=== PATIENT | female | born 1935 | race Caucasian/White ===

== ENCOUNTER → 2017-05-31 | Outpatient (CLI) | payer OTHER ==
[~2017-05-31] MED LIST: ASCO100061 PO; CHOL100027 PO; EPP3/2 IM; FLAX1CAP11 PO; MULTTAB PO; OMEG10007 PO; OYST500T47 PO
[2017-05-31 10:44] LABS: HEMATOCRIT 38.1 % (37-47); MEAN CELL VOLUME 90.1 fL (80-100); MEAN CORPUSCULAR HEMOGLOBIN 30.3 pg (25-34); MEAN CORPUSCULAR HGB CONC 33.6 g/dl (32-36); MEAN PLATELET VOLUME 10.5 fL (7.4-10.4); PLATELET COUNT 233 K/uL (130-400); RED BLOOD COUNT 4.23 M/uL (4.2-5.4); WHITE BLOOD COUNT 3.68 K/uL (4.8-10.8)
[2017-05-31 10:58] LABS: ALT/SGPT 19 U/L (12-78); BLOOD UREA NITROGEN 17 mg/dl (7-18); BUN/CREATININE RATIO 25.4 (10-20); CALCIUM 8.7 mg/dl (8.5-10.1); CARBON DIOXIDE 30 mmol/L (21-32); CHLORIDE 108 mmol/L (98-107); CHOLESTEROL 225 mg/dl (0-200); CREATININE 0.66 mg/dl (0.60-1.20); GLUCOSE 80 mg/dl (70-99); POTASSIUM 4.1 mmol/L (3.5-5.1); SODIUM 142 mmol/L (136-145); TRIGLYCERIDES 101 mg/dl (0-150); VERY LOW DENSITY LIPOPROT CALC 20 mg/dl
[2017-05-31 11:08] LABS: ALKALINE PHOSPHATASE 64 U/L (45-117); AST/SGOT 17 U/L (15-37); CHOLESTEROL/HDL RATIO 3.7; HDL CHOLESTEROL 61 mg/dl; LDL CHOLESTEROL CALCULATED 144 mg/dl
[2017-05-31 11:59] LABS: BASO % 0.5 %; BASO ABS # 0.02 K/uL (0-0.2); COMPLETE YES; EOS % 2.4 %; LYMPH % 59.2 %; LYMPH ABS # 2.18 K/uL (1.2-3.4); MONO % 9.8 %; NEUT % 28.1 %
== END | disposition home or self-care (01) ==
LOC: C.LAB 07:36
PROVIDERS: ATTEND Physician Assistant
DX: D72.819 Decreased white blood cell count, unspecified (principal); E78.5 Hyperlipidemia, unspecified; E55.9 Vitamin D deficiency, unspecified

== ENCOUNTER → 2017-08-01 | Outpatient (CLI) | payer OTHER ==
[~2017-08-01] MED LIST changes: +ASPI81TA28 PO
--- NOTE | 2017-08-01 12:50 | MAMMOGRAPHY REPORT ---
BILATERAL DIGITAL SCREENING MAMMOGRAM TOMOSYNTHESIS WITH CAD: 08/01/2017 CLINICAL HISTORY: Routine screening. Patient has no complaints. TECHNIQUE: Breast tomosynthesis in addition to standard 2D mammography was performed. Current study was also evaluated with a Computer Aided Detection (CAD) system. COMPARISON: Comparison is made to exams dated: 07/31/2016 mammogram, 10/05/2015 stereotactic biopsy, mammogram, 08/15/2015 mammogram, 07/26/2015 mammogram, and 07/22/2014 mammogram - [facility]. BREAST COMPOSITION: The tissue of both breasts is heterogeneously dense, which may obscure small mas ses. FINDINGS: No suspicious masses, calcifications, or areas of architectural distortion are noted in ei ther breast. There has been no significant interval change compared to prior exams. There are stable postsurgical changes in the right upper outer quadrant from prior lumpectomy. A biopsy marker clip is again noted within the left upper outer quadrant. bilateral benign-appearing calcifications are no t significantly changed. 8 mm mass within the right medial breast is stable dating back to at least the 2009 exam, and considered benign given long-term stability. IMPRESSION: ACR BI-RADS CATEGORY 2: BENIGN There is no mammographic evidence of malignancy. A 1 year screening mammogram is recommended. The pa tient will receive written notification of the results. Approximately 10% of breast cancers are not detected with mammography. A negative mammographic report should not delay biopsy if a clinically suggestive mass is present. Belkis Coates M.D. /:08/01/2017 07:29:31 Design Maker: Arlette CLARKE(Mina)(M), [facility] letter sent: Normal 1/2 BI-RADS Code: ACR BI-RADS Category 2: Benign
== END | disposition home or self-care (01) ==
LOC: C.MAMM 07:10
PROVIDERS: ATTEND Internal Medicine
DX: Z12.31 Encounter for screening mammogram for malignant neoplasm of breast (principal)

== ENCOUNTER 2017-12-14 17:25 | Emergency (ER) | payer OTHER ==
[2017-12-14 17:38] VITALS: TEMP 36.7; Ht 165.1 cm
[2017-12-14] MEDS ORDERED: SODIUM CHLORIDE 0.9% 500ML 500 ML IV STA (17:49)
--- NOTE | 2017-12-14 17:55 | EMERGENCY ROOM VISIT NOTE ---
History Report prepared by Jake: Emil Collins Under the Supervision of: Dr. Benjamín Jean M.D. First contact with patient: 17:43 Chief Complaint: ABDOMINAL PAIN Stated Complaint: SICK, ABD PAIN Nursing Triage Summary: I was in town and attempting to get out of the car and I had really bad burning in my upper abdomen. no cardic history. denies shortness of breath or diaphoresis. History of Present Illness The patient is a 82 year old female who presents to the Emergency Room with complaints of worsening epigastric abdominal pain that began an hour ago after she stepped out of her car. Patient describes the pain as a "burning". She states that the symptoms came on all of a sudden. She states that the pain does not radiate to her chest. She adds that lying down relieves the symptoms. She adds that she got dizzy when she stepped out of the car as well. Patient states that she was working outside today. Patient has a family history on her mother' s side of gallbladder problems. Patient denies a history of GERD, pancreatitis, abdominal surgeries, heart/abdominal problems, or easy bleeding. Patient denies a history of an enlarged aorta. Patient denies any recent falls or injuries. She denies fevers, chills, or chest pain. Patient denies using any alcohol recently. Patient states that she has never smoked. She denies using medications on a daily basis. Source of History: patient Onset: 1 hour ago Position: abdomen (Epigastric) Quality: burning Timing: worsening Modifying Factors (Relieving): other (Lying down) Associated Symptoms: No fevers, No chills, No chest pain Note: Patient has dizziness. Review of Systems See HPI for pertinent positives & negatives. A total of 10 systems reviewed and were otherwise negative. Past Medical & Surgical Medical Problems: (1) Esophageal Reflux (2) Hyperlipidemia Nec/Nos (3) Hypothyroidism Nos (4) Pure Hypercholesterolem (5) Scoliosis Nec (6) Senile Osteoporosis (7) Trans Cereb Ischemia Nos Family History Cancer Social History Smoking Status: Never Smoker Marital Status: Housing Status: lives with family Occupation Status: retired Current/Historical Medications Scheduled Ascorbic Acid (Ascorbic Acid), 1,000 MG PO DAILY Aspirin (Aspirin Ec), 81 MG PO DAILY Cholecalciferol (Vitamin D 1000 Unit), 1,000 INTER.UNIT PO DAILY Epinephrine (Epipen), 0.3 MG IM UD Fish Oil ([place]-3), 1 CAP PO DAILY Flaxseed (Linseed) (Flax Seed Oil), 1 CAP PO DAILY Multivitamins/Minerals (Mvi With Minerals), 1 TAB PO DAILY Oyster Shell (Calcium), 500 MG PO DAILY Allergies Coded Allergies: Iodine (Verified Allergy, Unknown, SEE BELOW, 12/14/17) PT DENIES ANY ALLERGY TO ANY IODINE PREP SOLUTION, PT STATES SHE BECOMES VERY ILL WITH ANY SHELLFISH. (N/V). Shellfish (Verified Adverse Reaction, Severe, VOMITING, 12/14/17) Physical Exam Vital Signs Date Time Temp Pulse Resp B/P (MAP) Pulse Ox O2 Delivery O2 Flow Rate FiO2 12/14/17 20:15 63 19 152/77 99 12/14/17 19:31 67 21 154/70 95 Room Air 12/14/17 19:01 63 16 153/75 99 Room Air 12/14/17 18:40 82 20 120/68 97 Room Air 12/14/17 17:51 75 12/14/17 17:38 36.7 77 18 155/79 98 Room Air Physical Exam GENERAL: Patient is elderly appearing and in mild distress. EYES: No scleral icterus, unremarkable pupils. ENT: Mucous membranes moist, no nasal congestion. NECK: No masses appreciated, no meningismus, trachea is midline. RESPIRATORY: No dyspnea. Clear to auscultation and equal bilaterally. No wheeze , no rhonchi. CARDIOVASCULAR: Regular rate and rhythm. No murmurs, rubs, gallops appreciated. GASTROINTESTINAL: Abdomen soft, point tenderness of epigastrium with questionable enlarged aorta, no peritonitis. Bowel sounds positive. No masses appreciated. BACK: No midline tenderness, no CVA tenderness EXTREMITIES: Normal motion all extremities, no cyanosis, no edema. NEUROLOGIC: Alert and oriented, no acute motor or sensory deficits, no focal weakness, cranial nerves grossly intact. SKIN: No rash, no jaundice, no diaphoresis. Medical Decision & Procedures ER Provider Diagnostic Interpretation: Radiology results and stated below per my review and radiologist interpretation: ABDOMEN AND PELVIS CT WITHOUT CONTRAST CT DOSE: 287.65 mGy.cm HISTORY: onset epigastric pain TECHNIQUE: Multiaxial CT images of the abdomen and pelvis were performed without the use of intravenous and oral contrast according to the standard department stone protocol. A dose lowering technique was utilized adhering to the principles of ALARA. COMPARISON STUDY: None. FINDINGS: The lung bases are essentially clear. No pneumoperitoneum. No pneumatosis. Posterior fusion from L2 through S1 with pedicle screws and rods. No suspicious lytic or blastic osseous lesions. Metallic artifact from the lumbar spinal fusion hardware resulting in suboptimal evaluation of the upper abdominal structures. However, the unenhanced liver, gallbladder, spleen, adrenal glands, pancreas, and left kidney are unremarkable. No renal or ureteral calculi. No left-sided hydronephrosis. The right renal pelvis is likely due to an extrarenal pelvis. No retroperitoneal lymphadenopathy. The bladder, uterus, bilateral adnexa are unremarkable. Suboptimal evaluation for bowel pathology due to the lack of intravenous and oral contrast. However, there is no definite out wall thickening or obstruction. A few colonic diverticula. No definite bowel wall thickening or obstruction. Moderate well-formed stool within the colon. IMPRESSION: 1. No definite bowel wall thickening or obstruction. 2. Moderate well-formed stool seen within the colon. 3. Posterior fusion throughout the majority of the lumbar spine. 4. Mildly dilated right renal pelvis. This likely represents an extrarenal pelvis. No renal or ureteral stones. No definite hydronephrosis. Electronically signed by: Raji Jj M.D. 12/14/2017 7:23 PM Laboratory Results 12/14/17 17:00 Red Blood Count 4.39, Mean Corpuscular Volume 88.2, Mean Corpuscular Hemoglobin 29.8, Mean Corpuscular Hemoglobin Concent 33.9, Mean Platelet Volume 9.7, Neutrophils (%) (Auto) 25.8, Lymphocytes (%) (Auto) 63.4, Monocytes (%) (Auto) 8.6, Eosinophils (%) (Auto) 1.8, Basophils (%) (Auto) 0.2, Neutrophils # (Auto) 1.25, Lymphocytes # (Auto) 3.09, Monocytes # (Auto) 0.42, Eosinophils # (Auto) 0.09, Basophils # (Auto) 0.01 12/14/17 17:00 Test 12/14/17 17:00 White Blood Count 4.87 K/uL (4.8-10.8) Red Blood Count 4.39 M/uL (4.2-5.4) Hemoglobin 13.1 g/dL (12.0-16.0) Hematocrit 38.7 % (37-47) Mean Corpuscular Volume 88.2 fL (80-100) Mean Corpuscular Hemoglobin 29.8 pg (25-34) Mean Corpuscular Hemoglobin Concent 33.9 g/dl (32-36) Platelet Count 251 K/uL (130-400) Mean Platelet Volume 9.7 fL (7.4-10.4) Neutrophils (%) (Auto) 25.8 % Lymphocytes (%) (Auto) 63.4 % Monocytes (%) (Auto) 8.6 % Eosinophils (%) (Auto) 1.8 % Basophils (%) (Auto) 0.2 % Neutrophils # (Auto) 1.25 K/uL (1.4-6.5) Lymphocytes # (Auto) 3.09 K/uL (1.2-3.4) Monocytes # (Auto) 0.42 K/uL (0.11-0.59) Eosinophils # (Auto) 0.09 K/uL (0-0.5) Basophils # (Auto) 0.01 K/uL (0-0.2) RDW Standard Deviation 40.0 fL (36.4-46.3) RDW Coefficient of Variation 12.5 % (11.5-14.5) Immature Granulocyte % (Auto) 0.2 % Immature Granulocyte # (Auto) 0.01 K/uL (0.00-0.02) Anion Gap 6.0 mmol/L (3-11) Estimated GFR () 92.6 Estimated GFR (Non- 79.9 BUN/Creatinine Ratio 20.2 (10-20) Calcium Level 8.9 mg/dl (8.5-10.1) Total Bilirubin 0.3 mg/dl (0.2-1) Direct Bilirubin < 0.1 mg/dl (0-0.2) Aspartate Amino Transf (AST/SGOT) 20 U/L (15-37) Alanine Aminotransferase (ALT/SGPT) 23 U/L (12-78) Alkaline Phosphatase 77 U/L (45-117) Troponin I < 0.015 ng/ml (0-0.045) Total Protein 7.4 gm/dl (6.4-8.2) Albumin 3.8 gm/dl (3.4-5.0) Lipase 211 U/L (73-393) Laboratory results as reviewed by me. Medications Administered Medications (Trade) Dose Ordered Sig/Agusto Route Start Time Stop Time Status Last Admin Dose Admin Sodium Chloride 500 ml @ 999 mls/hr Q31M STAT IV 12/14/17 17:49 12/14/17 18:19 DC 12/14/17 18:27 999 MLS/HR Lidocaine HCl (Viscous Lidocaine 2% Soln) 20 ml STK-MED ONCE .ROUTE 12/14/17 19:19 12/14/17 19:20 DC 12/14/17 19:21 20 ML Al Hydroxide/Mg Hydroxide (Maalox Susp) 30 ml STK-MED ONCE .ROUTE 12/14/17 19:19 12/14/17 19:20 DC 12/14/17 19:22 30 ML ECG Per My Interpretation Indication: abdominal pain Rate (beats per minute): 68 Rhythm: sinus rhythm Findings: no acute ischemic change, prolonged QT (QTc = 438), no ectopy ED Course 1738: The patient was evaluated in room A9. A complete history and physical exam was performed. 1905: I reassessed the patient. She states that her pain continues to improve and that it is not bothering her. She states that she still has a light burning in her epigastrium. Patient is agreeable to trying a GI cocktail. Patient adds that she never had an allergic reaction to IV dye. She states that she had a low blood pressure during surgery with a farm loan inspector which they thought might be due to the the cleaning solution that was used. 2006: Reevaluated the patient. She states that she would like to go home. She admits that she has been previously told that she might have a bad gallbladder and will follow up with her PCP. Discussed results and discharge instructions. She verbalized understanding and agreement. The patient is ready for discharge. Medical Decision Differential: Cholecystitis, Gallbladder disfunction, Hepatic Disfunction, Gastritis/PUD, Pancreatitis, ACS, Aortic Pathology, amongst other pathologies entertained. 82 yr old with 6+ hours of epigastric pain starting around late morning/lunch. No history of this previously and mild TTP on exam which given this went ahead with CT. Ordered IV con but CT states that she is allergic thus switched to without rather than delay imaging. CT unremarkable. Discussed allergy with patient and she notes low BP and bradycardia after Derm procedure which was thought it might have been due to iodine. She does not think she has had IV contrast before though. Regardless. with normal aorta size, resolution of pain with GI cocktail and patient looking well without peritonitis, and with excellent pulses I do not feel that sending back for CT w con required at this time. Patient without evidence ACS. She is feeling well and wishes to go home which seems reasonable. No indication that repeat Trop/EKG indicated in this case. Patient discharged to home with instructions requiring RTED. Medication Reconcilliation Current Medication List: was personally reviewed by me Blood Pressure Screening Patient's blood pressure: Elevated blood pressure Blood pressure disposition: Referred to PCP Impression Primary Impression: Epigastric abdominal pain Scribe Attestation The scribe's documentation has been prepared under my direction and personally reviewed by me in its entirety. I confirm that the note above accurately reflects all work, treatment, procedures, and medical decision making performed by me. Departure Information Dispostion Home / Self-Care Referrals Saul Roy M.D. (PCP) Patient Instructions ED Epigastric Pain [facility], My [facility] Additional Instructions Follow up with your primary care provider to discuss further testing and evaluation of stomach and gallbladder. Return immediately if worsening symptoms, chest pain, passing out or other concerns. Eat a bland, light diet over the next few days avoiding spicy foods when possible.
[2017-12-14 18:02] LABS: HEMATOCRIT 38.7 % (37-47); HEMOGLOBIN 13.1 g/dL (12.0-16.0); MEAN CELL VOLUME 88.2 fL (80-100); MEAN CORPUSCULAR HEMOGLOBIN 29.8 pg (25-34); MEAN CORPUSCULAR HGB CONC 33.9 g/dl (32-36); MEAN PLATELET VOLUME 9.7 fL (7.4-10.4); PLATELET COUNT 251 K/uL (130-400); RED CELL DISTRIBUTION WIDTH CV 12.5 % (11.5-14.5); WHITE BLOOD COUNT 4.87 K/uL (4.8-10.8)
[2017-12-14 18:20] LABS: ALBUMIN 3.8 gm/dl (3.4-5.0); ALT/SGPT 23 U/L (12-78); AST/SGOT 20 U/L (15-37); BLOOD UREA NITROGEN 14 mg/dl (7-18); CALCIUM 8.9 mg/dl (8.5-10.1); CARBON DIOXIDE 28 mmol/L (21-32); CREATININE 0.71 mg/dl (0.60-1.20); GLUCOSE 84 mg/dl (70-99); LIPASE 211 U/L (73-393); POTASSIUM 3.6 mmol/L (3.5-5.1); SODIUM 140 mmol/L (136-145)
[2017-12-14 18:25] LABS: ALKALINE PHOSPHATASE 77 U/L (45-117); TOTAL PROTEIN 7.4 gm/dl (6.4-8.2)
[2017-12-14 18:48] LABS: BASO % 0.2 %; BASO ABS # 0.01 K/uL (0-0.2); EOS % 1.8 %; EOS ABS # 0.09 K/uL (0-0.5); IG# 0.01 K/uL (0.00-0.02); LYMPH % 63.4 %; LYMPH ABS # 3.09 K/uL (1.2-3.4); MONO % 8.6 %; MONO ABS # 0.42 K/uL (0.11-0.59); NEUT % 25.8 %; NEUT ABS # 1.25 K/uL (1.4-6.5)
[2017-12-14] MEDS ORDERED: GI COCKTAIL PO STA (19:05)
[2017-12-14] MEDS ORDERED: ALUMINUM/MAGNESIUM SUSP 30 ML UDC ONE (19:19)
[2017-12-14] MEDS ORDERED: LIDOCAINE HCL 2% VISC SOLN 20 ML UDC ONE (19:19)
--- NOTE | 2017-12-14 19:24 | DIAGNOSTIC IMAGING REPORT ---
ABDOMEN AND PELVIS CT WITHOUT CONTRAST CT DOSE: 287.65 mGy.cm HISTORY: onset epigastric pain TECHNIQUE: Multiaxial CT images of the abdomen and pelvis were performed without the use of intravenous and oral contrast according to the standard department stone protocol. A dose lowering technique was utilized adhering to the principles of ALARA. COMPARISON STUDY: None. FINDINGS: The lung bases are essentially clear. No pneumoperitoneum. No pneumatosis. Posterior fusion from L2 through S1 with pedicle screws and rods. No suspicious lytic or blastic osseous lesions. Metallic artifact from the lumbar spinal fusion hardware resulting in suboptimal evaluation of the upper abdominal structures. However, the unenhanced liver, gallbladder, spleen, adrenal glands, pancreas, and left kidney are unremarkable. No renal or ureteral calculi. No left-sided hydronephrosis. The right renal pelvis is likely due to an extrarenal pelvis. No retroperitoneal lymphadenopathy. The bladder, uterus, bilateral adnexa are unremarkable. Suboptimal evaluation for bowel pathology due to the lack of intravenous and oral contrast. However, there is no definite out wall thickening or obstruction. A few colonic diverticula. No definite bowel wall thickening or obstruction. Moderate well-formed stool within the colon. IMPRESSION: 1. No definite bowel wall thickening or obstruction. 2. Moderate well-formed stool seen within the colon. 3. Posterior fusion throughout the majority of the lumbar spine. 4. Mildly dilated right renal pelvis. This likely represents an extrarenal pelvis. No renal or ureteral stones. No definite hydronephrosis. Electronically signed by: Raji Jj M.D. 12/14/2017 7:23 PM Dictated Date/Time: 12/14/2017 7:13 PM
[2017-12-14 20:15] VITALS: BP 152/77; PULSE 63; O2SAT 99
== END 2017-12-14 20:16 | disposition home or self-care (01) ==
LOC: C.EDB 17:26 → C.EDA 20:16
DX: R10.13 Epigastric pain (principal); E78.5 Hyperlipidemia, unspecified; E03.9 Hypothyroidism, unspecified; E78.00 Pure hypercholesterolemia, unspecified; Z79.82 Long term (current) use of aspirin; Z91.041 Radiographic dye allergy status; Z91.013 Allergy to seafood

== ENCOUNTER 2022-04-03 10:39 | Observation (INO) ==
[2022-04-03] MEDS ORDERED: SODIUM CHLORIDE 0.9% 1000ML 1,000 ML IV SCH (10:45)
--- NOTE | 2022-04-03 10:58 | CT Scan Report ---
CT SCAN OF THE BRAIN WITHOUT IV CONTRAST CLINICAL HISTORY: Strokelike symptoms. Change in mental status. COMPARISON STUDY: CT of the brain dated 12/15/2007. TECHNIQUE: Unenhanced axial CT scan of the brain is performed from the vertex to the skull base. A do se lowering technique was utilized adhering to the principles of ALARA. FINDINGS: Brain parenchyma: There is age-related involutional change noting minimal subcortical and periventric ular microangiopathic disease. There is no hemorrhage, mass effect, or evidence of acute territorial ischemia by CT criteria. 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 Jiang-wh ite matter differentiation is preserved. No extra-axial fluid collection is seen. Ventricles, sulci, cisterns: Prominent secondary to involutional change. Cavum septum lucid is incide ntally noted. Intracranial vasculature: There is atherosclerotic calcification of the cavernous carotid and vertebr al arteries. Calvarium: Unremarkable. Sinuses and mastoids: The visualized paranasal sinuses are clear. The mastoid air cells are well pneu matized. Orbits: The bony orbits are grossly intact. There are bilateral ocular lens implants. IMPRESSION: There is no hemorrhage, mass effect, or evidence of acute territorial ischemia by CT belem barber. ACT 112: Negative or not required by law. Electronically signed by: Corby Hinton M.D. 04/03/2022 10:56 AM
--- NOTE | 2022-04-03 11:00 | XRay Report ---
SINGLE VIEW CHEST CLINICAL HISTORY: Strokelike symptoms. FINDINGS: An AP, portable, upright chest radiograph is compared to study dated 06/28/2019. The examin ation is degraded by portable technique and apical lordotic positioning. The heart is top normal for projection noting atherosclerotic calcification of the thoracic aorta. Chronic interstitial thickenin g is similar to previous. The lungs and pleural spaces are clear noting bibasilar scarring/atelectasi s. No pneumothorax is seen. The skeletal structures are osteopenic. The bony thorax is grossly intact . Fusion hardware is partially visualized in the lumbar spine. Surgical clips project over the right lower chest wall. IMPRESSION: No acute cardiopulmonary abnormality. ACT 112: Negative or not required by law. Electronically signed by: Corby Hinton M.D. 04/03/2022 10:59 AM
[2022-04-03 11:10] LABS: Basophils # (auto) 0.01 K/uL (0-0.2); Basophils % (auto) 0.2 %; Eosinophils # (auto) 0.06 K/uL (0-0.50); Eosinophils % (auto) 1.3 %; Hematocrit (blood only) 40.5 % (34.1-44.9); Hemoglobin 13.4 g/dl (12.0-16.0); Immature Granulocytes # (auto) 0.01 K/uL (0.00-0.02); Immature Granulocytes % (auto) 0.2 %; Lymphocytes # (auto) 1.35 K/uL (1.2-3.4); Mean Corpuscular Hemoglobin 29.7 pg (25.0-34.0); Mean Corpuscular Hgb Conc 33.1 g/dL (32.0-36.0); Mean Corpuscular Volume 89.8 fL (80.0-100.0); Mean Platelet Volume 10.2 fL (9.4-12.3); Monocytes # (auto) 0.49 K/uL (0.24-0.82); Monocytes % (auto) 10.5 %; Neutrophils # (auto) 2.73 K/uL (1.4-6.5); Neutrophils % (auto) 58.8 %; Platelet Count 232 K/uL (130-400); RDW Coefficient of Variation 12.8 % (11.5-14.5); RDW Standard Deviation 41.9 fL (36.4-46.3); Red Blood Count 4.51 M/uL (3.93-5.22); White Blood Count 4.65 K/ul (4.8-10.8)
[2022-04-03 11:20] LABS: Appearance Urine Clear (Clear); Bilirubin Urine Negative (Negative); Blood Urine Negative (Negative); Color Urine Yellow; Glucose Urine UA Negative (Negative); Ketones Urine Negative (Negative); Leukocyte Esterase Urine Negative (Negative); Nitrite Urine Negative (Negative); Protein Urine Negative (Negative); Specific Gravity Urine 1.002 (1.000-1.030); Urobilinogen Urine Negative (Negative); pH Urine 7.5 (4.5-7.5)
[2022-04-03 11:27] LABS: Troponin I High Sensitivity 25.3 pg/ml (0-14)
[2022-04-03 11:29] LABS: Albumin Globulin Ratio 1.5 (0.9-2); BUN Creatinine Ratio 18.3 (10-20); Bilirubin,Total 0.7 mg/dl (0.2-1.0); Calcium 9.3 mg/dl (8.5-10.1); Est GFR (African American) 95.7 ml/min; Est GFR (Non-African American) 82.5 ml/min; Globulin 2.7 gm/dl (2.5-4.0); Total Protein 6.7 gm/dl (6.0-8.3)
[2022-04-03 11:32] LABS: Partial Thromboplastin Ratio 0.9; Partial Thromboplastin Time 24.6 Seconds (21.0-31.0); Prothrombin Time 10.2 Seconds (9.0-12.0)
--- NOTE | 2022-04-03 12:11 | History & Physical Report ---
Date of Service April 03, 2022 Assessment & Plan (1) TGA (transient global amnesia): Plan: Ernestine is an 87-year-old female who presents for an episode of acute confusion and memory loss as a stroke alert and who is being evaluated for mildly elevated high-sensitivity troponin, memory loss suspicious for transient global amnesia, and TIA rule out. She has a history of a similar episode in 2008. Memory loss suspicious for TGA, differential includes TIA CThead negative. Done without contrast due to allergy Patient with about 1 hour of retrograde memory loss and no other deficits or confusion. Patient at baseline by time of ER assessment, and neuro cognitively intact at hospitalist assessment MRA of the head and neck pending Discussed with telestroke in ER, and with neurology. Recieved asa. tPA/TNKase not recommended/indicated at this time. Patient may have a area of restricted diffusion to the temporal lobe contributing to a predisposition for these attacks, follow MRI above Recommended for EEG, this can be completed as an outpatient for evaluation of potential partial seizure We will continue aspirin at this time. Will defer switching to Plavix pending above No hypoglycemia on admission A1c, lipid panel pending. If lipids greater than [address]232, add statin Troponin is mildly elevated without chest pain or EKG changes. Serial troponins ordered, echo pending TSH/T4 pending GERD PPI daily Mild hypertension No pharmacologic control of hypertension as outpatient. 144/75 on admission, continue to follow Hypothyroidism Historical, not currently on any thyroid medication Possible polyneuropathy Mild diminished sensation to soft touch in lower extremities bilaterally without complete loss Lower extremities neurovascularly intact, good cap refill. Minimal/hair on toes/legs although patient reports this is always been normal for her A1c pending, B12 pending, TSH pending Appropriate for outpatient follow-up DVT prophylaxis: SCDs, Lovenox tomorrow Disposition: Medical telemetry while on cardiac eval CODE STATUS: DNR/DNI, discussed with patient at bedside. Surrogate decision maker would be her Diet: Heart healthy pending normal swallow eval (2) Gastroesophageal reflux disease: (3) Hyperlipidemia LDL goal <100: (4) Hypothyroidism (acquired): (5) Elevated troponin: (6) Neuropathy: History of Present Illness Primary Care Provider: Saul Roy MD Per Pt: At bedside patient seen in the company of her . She reports that she had an episode this morning where she had gardened ~830am (4 horus [employer]) and watered her lawn and then went inside and did not remember doing so. She did not have any awareness that anything was wrong, but asked her who had done the gardening/watering and did not remember and her was extremely concerned. Otherwise her noted she did not seem confused. She went inside and laid down but felt okay, but due to the complete memory loss and concern for TIA it was recommended she be seen in the hospital for evaluation, came in as a stroke alert. At bedside she reports that she is otherwise in her normal state of health. She has not had any chest pain, chest pressure, recent illnesses, lightheadedness, dizziness, focal weakness, or generalized weakness. She does endorse a longstanding history of some diminished sensation of soft touch in her lower legs bilaterally, this is incomplete and symmetrical and has not changed. No other neurologic deficits. She has an episode of TGA in 2008 with about 5 hours of permanent retrograde memory loss. She currently has had some return of memory of watering a little bit and weeding a little bit, but most remains absent. Medical History: Reviewed Medications: Reviewed Surgical History: Reviewed Allergies: Reviewed Social History: No tobacco, rare social alcohol use with none recently. No recent supplement or [id number] medication change Code Status: NR/DNI. Discussed at bedside. Patient's surrogate decision maker would be her Allergies Allergy/AdvReac Type Severity Reaction Status Date / Time iodine Allergy Intermediate TINGLING Verified 06/14/21 09:00 IN LIMBS shellfish derived AdvReac Severe VOMITING Verified 06/14/21 09:00 dextromethorphan AdvReac Intermediate MANAGER [employer]INICAL INFORMATICS Verified 06/14/21 09:00 Yellow [place]ets Allergy Severe anaphylaxis Uncoded 06/14/21 09:00 Home Medications Medication Instructions Recorded Confirmed Type ascorbate calcium (vitamin C) 500 500 mg PO DAILY 06/05/19 06/14/21 History mg tablet aspirin 81 mg tablet,delayed 81 mg PO DAILY 06/05/19 06/14/21 History release calcium carbonate 500 mg calcium 500 mg PO DAILY 06/05/19 06/14/21 History (1,250 mg) tablet (Calcium 500) cholecalciferol (vitamin D3) 25 1,000 units PO DAILY 06/05/19 06/14/21 History mcg (1,000 unit) capsule flaxseed oil 1,000 mg capsule 1,000 mg PO DAILY 06/05/19 06/14/21 History multivitamin (Daily Multi-Vitamin 1 tab PO DAILY 06/05/19 06/14/21 History tablet) omega-3 fatty acids 1,000 mg 1,000 mg PO DAILY 06/05/19 06/14/21 History capsule (Fish Oil Concentrate) epinephrine 0.3 mg/0.3 mL 0.3 mg (0.3 mL) IM DIRECTED PRN 12/07/19 06/14/21 Rx injection, auto-injector (EpiPen Allergic Reaction #2 ea 2-Navdeep) Past Med/Surg History Medical History Chronic back pain Gastroesophageal reflux disease H/O bone density study 11/04/2018-osteopenia Hyperlipidemia LDL goal <100 Hypothyroidism (acquired) Lumbar post-laminectomy syndrome Neoplasm of left breast, 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 Mother , Age 76 Breast cancer Grandfather No problems noted. 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 NAD. Cooperative. HEENT: Atraumatic, normocephalic. Pulm: CTAB A&P. -wheezes, -rales, -rhonchi. Symmetrical chest rise. No increased work of breathing. No respiratory distress. Cardiac: RRR, -mrg. Radial pulses intact and symmetrical. Abdominal: Nontender, nondistended, soft. BS present. CRANIAL NERVES: II: Pupils equal and reactive, no relative afferent pupillary defect, no VF cuts III, IV, : EOM intact, no gaze preference or deviation, no nystagmus. V: normal sensation in V1, V2, and V3 segments bilaterally VII: no asymmetry, no nasolabial fold flattening VIII: normal hearing to speech IX, X: normal palatal elevation, no uvular deviation XI: 5/5 head turn and 5/5 shoulder shrug bilaterally XII: midline tongue protrusion MOTOR: RUE: 5/5 Shoulder internal rotation, external rotation, flexion, extension, abduction, adduction 5/5 Elbow flexion/extension, wrist flexion/extension 5/5 sign painter apprentice strength, finger flexion/extension, interosseus LUE: 5/5 Shoulder internal rotation, external rotation, flexion, extension, abduction, adduction 5/5 Elbow flexion/extension, wrist flexion/extension 5/5 sign painter apprentice strength, finger flexion/extension, interosseus RLE: 5/5 to hip flexion, knee flexion/extension, ankle dorsiflexion/plantarflexion LLE: 5/5 to hip flexion, knee flexion/extension, ankle dorsiflexion/plantarflexion SENSORY: Normal to touch temp in upper extremities without deficit or asymmetry. Symmetrical reduced but not absent sensation to light soft touch distal to the mid calf bilaterally. PT pulses are intact, cap refill to the hallux and fifth toe is brisk bilaterally. COORD: Normal finger to nose and heel to lorenzana, no tremor, no dysmetria Results & Data Results & Data ([facility]) Vital Signs (Past 12 Hours) Vital Signs Pulse Resp BP Pulse Ox O2 Del Method 04/03/22 11:20 66 18 97 Room Air 04/03/22 11:15 165/84 H Room Air 04/03/22 11:15 69 19 98 Room Air 04/03/22 11:10 66 19 100 Room Air 04/03/22 11:00 64 19 96 Room Air 04/03/22 10:52 81 22 98 Room Air 04/03/22 10:52 178/98 H Room Air 04/03/22 10:57 100 H 16 178/98 H 97 Room Air PG Care Time/CCT Total # of Minutes Spent Total Time Spent with Patient: Total time spent is greater than 50% in coordination of care (as documented) at patient's floor/unit and/or counseling patient: Coding Level of Care Code INT OBSERVATION CARE 70M LVL 3 Diagnoses TGA (transient global amnesia) G45.4 Gastroesophageal reflux disease K21.9 Hyperlipidemia LDL goal <100 E78.5 Hypothyroidism (acquired) E03.9 Elevated troponin R77.8 Neuropathy G62.9
[2022-04-03] MEDS ORDERED: ONDANSETRON INJ 2 MG/ML 2 ML VIAL IV PRN (14:30)
[2022-04-03] MEDS ORDERED: ACETAMINOPHEN 325 MG TAB PO PRN (14:30)
[2022-04-03] MEDS ORDERED: PHARMACIST DISCHARGE MED REC CONSULT PRN (14:30)
--- NOTE | 2022-04-03 14:39 | Emergency Department Note ---
Impression & Plan TGA (transient global amnesia), Stroke-like symptoms ED Provider Note INFORMANT: Patient, EMS and family ED PROVIDER(S): José Luis Gutierrez MD CHIEF COMPLAINT: Strokelike symptoms PLAN: Disposition: Admitted Condition: Good Outpatient prescription management: none Referral: None MEDICAL DECISION MAKING: Patient presented because of strokelike symptoms. She was made a stroke alert. She was taken emergently to CT imaging. Dry CT was performed due to her history of iodine allergy. The patient had a negative CT scan. She was evaluated in the resuscitation room. She had essentially no symptoms. There was some mild fogginess but she was already remembering the details of the morning. She was minimally hypertensive. The patient had a nonfocal examination and NIH stroke scale of 0. [facility] recommended MRI/MRI, EEG, and stroke work-up. Patient's CBC and chemistry panel were unremarkable. She did have a mild elevation of her troponin. ECG did not show any acute findings. [facility] Patient was evaluated in the ER and admitted for further management. Triage Nursing notes reviewed and agree them. Vital Signs: reviewed and remarkable for no significant abnormalities Differential diagnosis: CVA, TIA, TGA, infection, dehydration, metabolic abnormality, hypo/hyperglycemia, electrolyte disturbance, anemia, hypoxia, cardiac sources, intracerebral event, toxicologic, neurologic, as well as other pathologies. Diagnostics interpreted by me: ECG: Twelve-lead ECG reveals normal sinus rhythm at 80 bpm. Left atrial enlargement. No ST elevation or depression. No PACs or PVCs. Normal axis. Cardiac Monitoring: Cardiac monitoring ordered by me: The patient was placed on continuous cardiac monitoring and observed. It revealed a normal sinus rhythm at 69 beats per minute without ectopy or evidence of dysrhythmia. Imaging studies: Head CT negative. Chest x-ray. Findings: A chest x-ray was performed and revealed no pneumothorax, effusion, infiltrate, pulmonary edema, free air under the diaphragm, or wide mediastinum. Impression: No acute disease. HPI: The patient is a 87year old female who presents to the Emergency Room with complaints of confusion. This started sometime around 845 and is improving. The patient was doing chores with her . She was doing well. She went outside to work in the garden and when she came back in to the house she did not remember being outside or doing work this morning. EMS was summoned. Family notes she has a history of an amnestic event about 14 years ago. That lasted about 5 hours. The patient also notes the following associated symptoms, none. Patient's blood pressure was mildly elevated around 180 systolic for EMS. Her blood sugar was 104. The patient has no medication for relieving factors. Current pain is rated as 0/10. Family notes no dysarthria. Patient denies trauma. Pt denies LOC, headache, fevers, chills, diaphoresis, visual changes, neck pain, chest pain, breathing difficulties, nausea, vomiting, abdominal pain, back pain, melena, hematochezia, urinary symptoms, numbness, weakness, l ymphadenopathy, rash, or other complaints. ROS: See above HPI for pertinent positives & negatives. A total of 10 systems reviewed and were otherwise negative. PAST MEDICAL HISTORY:See Below , GERD, COVID-19 PAST SURGICAL HISTORY:See Below, FAMILY HISTORY:See Below SOCIAL HISTORY:See Below, retired. Lives with . HOME MEDICATIONS:See Below ALLERGIES:See Below VITALS:See Below PHYSICAL EXAMINATION: GENERAL: Awake, alert, well-appearing, in no distress HENT: Normocephalic, atraumatic. Oropharynx unremarkable. EYES: Normal conjunctiva. Sclera non-icteric. PERRLA. EOMI. NECK: Inspection normal. Non-tender. Supple. No nuchal rigidity. FROM. No masses. RESPIRATORY: Clear to auscultation. No wheezes. No rales. Normal respiratory effort. CARDIAC: Normal rate. Normal rhythm. No murmurs. No rubs. Extremities warm and well perfused. Pulses equal. No JVD. GI: Soft, non-distended. No tenderness to palpation. No rebound or guarding. No masses. RECTAL: Deferred. MUSCULOSKELETAL: Atraumatic. Chest examination reveals no tenderness. The back is symmetrical on inspection without obvious abnormality. There is no CVA tenderness to palpation. No joint edema. LOWER EXTREMITIES: Calves are equal size bilaterally and non-tender. No edema. N o discoloration. NEURO: Normal sensorium. No sensory or motor deficits noted. No drift. Speech normal. Cranial nerves II through XII intact. SKIN: No rash or jaundice noted. 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 Mother , Age 76 Breast cancer Grandfather No problems noted. 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 Required: No Beliefs That Will Affect Care: None marital status: Current Living Situation: Spouse current occupational status: retired current occupation: [employer] How many Children do You have: 3 Other Information That Helps Us Care for You: No Feels Safe at Home: Yes Safety Concerns: Feels Safe At This Time Childhood Exposure to Second-Hand Smoke: No caffeine: Yes (coffee) Dental Care, Regularly: Yes Physical Activity Frequency: 1-2 Times per Week Physical Activity Frequency Comment: walk Seatbelt Use: always Sunscreen Use: Yes Do you think of yourself as: straight/heterosexual Assistive Devices: Denture - Upper, Denture - Lower and Glasses Allergies Allergies Allergy/AdvReac Type Severity Reaction Status Date / Time iodine Allergy Intermediate TINGLING Verified 06/14/21 09:00 IN LIMBS shellfish derived AdvReac Severe VOMITING Verified 06/14/21 09:00 dextromethorphan AdvReac Intermediate BARREL FINISHER Verified 06/14/21 09:00 [place] Allergy Severe anaphylaxis Uncoded 06/14/21 09:00 Home Meds Home Medications Medication Instructions Recorded Confirmed ascorbate calcium (vitamin C) 500 500 mg PO DAILY 06/05/19 06/14/21 mg tablet aspirin 81 mg tablet,delayed 81 mg PO DAILY 06/05/19 06/14/21 release calcium carbonate 500 mg calcium 500 mg PO DAILY 06/05/19 06/14/21 (1,250 mg) tablet (Calcium 500) cholecalciferol (vitamin D3) 25 1,000 units PO DAILY 06/05/19 06/14/21 mcg (1,000 unit) capsule flaxseed oil 1,000 mg capsule 1,000 mg PO DAILY 06/05/19 06/14/21 multivitamin (Daily Multi-Vitamin 1 tab PO DAILY 06/05/19 06/14/21 tablet) omega-3 fatty acids 1,000 mg 1,000 mg PO DAILY 06/05/19 06/14/21 capsule (Fish Oil Concentrate) Previous Rx's Medication Instructions Recorded epinephrine 0.3 mg/0.3 mL 0.3 mg (0.3 mL) IM DIRECTED PRN 12/07/19 injection, auto-injector (EpiPen Allergic Reaction #2 [id number]) Results & Data (ED) Vital Signs Vital Signs - 24 hr 04/03/22 10:57 04/03/22 10:52 04/03/22 10:52 Pulse Rate 100 H 81 Pulse Rate from SpO2 Sensor 72 Respiratory Rate 16 22 Respiratory Depth Normal Blood Pressure 178/98 H 178/98 H Blood Pressure Mean 124 124 Pulse Oximetry 97 98 Oxygen Delivery Method Room Air Room Air Room Air Sepsis Recent Fever Within 48 Hours No Sepsis New/Unexplained Change in Mental Status No Sepsis Action Taken by Nursing No Action Required 04/03/22 11:00 04/03/22 11:10 04/03/22 11:15 Pulse Rate 64 66 69 Pulse Rate from SpO2 Sensor 68 71 65 Respiratory Rate 19 19 19 Respiratory Depth Blood Pressure Blood Pressure Mean Pulse Oximetry 96 100 98 Oxygen Delivery Method Room Air Room Air Room Air Sepsis Recent Fever Within 48 Hours Sepsis New/Unexplained Change in Mental Status Sepsis Action Taken by Nursing 04/03/22 11:15 04/03/22 11:20 04/03/22 11:30 Pulse Rate 66 73 Pulse Rate from SpO2 Sensor 66 66 Respiratory Rate 18 21 Respiratory Depth Blood Pressure 165/84 H Blood Pressure Mean 111 Pulse Oximetry 97 97 Oxygen Delivery Method Room Air Room Air Room Air Sepsis Recent Fever Within 48 Hours Sepsis New/Unexplained Change in Mental Status Sepsis Action Taken by Nursing 04/03/22 11:40 04/03/22 11:50 04/03/22 12:02 Pulse Rate 73 68 70 Pulse Rate from SpO2 Sensor 71 66 Respiratory Rate 19 19 12 Respiratory Depth Blood Pressure Blood Pressure Mean Pulse Oximetry 98 97 Oxygen Delivery Method Room Air Room Air Room Air Sepsis Recent Fever Within 48 Hours Sepsis New/Unexplained Change in Mental Status Sepsis Action Taken by Nursing 04/03/22 12:10 04/03/22 12:13 04/03/22 12:30 Pulse Rate 69 75 69 Pulse Rate from SpO2 Sensor 69 76 71 Respiratory Rate 22 18 20 Respiratory Depth Blood Pressure 154/87 H 162/84 H Blood Pressure Mean 109 110 Pulse Oximetry 97 98 97 Oxygen Delivery Method Room Air Room Air Room Air Sepsis Recent Fever Within 48 Hours Sepsis New/Unexplained Change in Mental Status Sepsis Action Taken by Nursing Laboratory Data Result diagrams: 04/03/22 10:46 04/03/22 10:46 Lab Results 04/03/22 04/03/22 04/03/22 Range/Units 10:46 10:46 10:46 WBC 4.65 L (4.8-10.8) K/ul RBC 4.51 (3.93-5.22) M/uL Hgb 13.4 (12.0-16.0) g/dl Hct 40.5 (34.1-44.9) % MCV 89.8 (80.0-100.0) fL MCH 29.7 (25.0-34.0) pg MCHC 33.1 (32.0-36.0) g/dL RDW Std Deviation 41.9 (36.4-46.3) fL RDW Coeff of Dom 12.8 (11.5-14.5) % Plt Count 232 (130-400) K/uL MPV 10.2 (9.4-12.3) fL Immature Gran % (Auto) 0.2 % Neut % (Auto) 58.8 % Lymph % (Auto) 29.0 % [place] % (Auto) 10.5 % Eos % (Auto) 1.3 % Baso % (Auto) 0.2 % Neut # (Auto) 2.73 (1.4-6.5) K/uL Lymph # (Auto) 1.35 (1.2-3.4) K/uL [place] # (Auto) 0.49 (0.24-0.82) K/uL Eos # (Auto) 0.06 (0-0.50) K/uL Baso # (Auto) 0.01 (0-0.2) K/uL Immature Gran # (Auto) 0.01 (0.00-0.02) K/uL PT 10.2 (9.0-12.0) Seconds INR 1.0 (0.9-1.1) APTT 24.6 (21.0-31.0) Seconds PTT Ratio 0.9 Sodium (136-145) mmol/L Potassium (3.5-5.1) mmol/L Chloride (98-107) mmol/L Carbon Dioxide (21-32) mmol/L Anion Gap (3-11) BUN (6-23) mg/dl Creatinine (0.6-1.2) mg/dl Est Cr Clr Drug Dosing ml/min Est GFR ( Amer) ml/min Est GFR (Non-Af Amer) ml/min BUN/Creatinine Ratio (10-20) Glucose (70-99(Fasting)) mg/dl POC Glucose (70-99) mg/dl Calcium (8.5-10.1) mg/dl Magnesium (1.7-2.4) mg/dl Total Bilirubin (0.2-1.0) mg/dl AST (13-39) U/L ALT (7-52) U/L Alkaline Phosphatase (34-104) U/L Troponin I High Sens (0-14) pg/ml Total Protein (6.0-8.3) gm/dl Albumin (3.4-5.0) gm/dl Globulin (2.5-4.0) gm/dl Albumin/Globulin Ratio (0.9-2) Urine Color Urine Appearance (Clear) Urine pH (4.5-7.5) Ur Specific [place] (1.000-1.030) Urine Protein (Negative) Urine Glucose (UA) (Negative) Urine Ketones (Negative) Urine Blood (Negative) Urine Nitrite (Negative) Urine Bilirubin (Negative) Urine Urobilinogen (Negative) Ur Leukocyte Esterase (Negative) SARS-CoV-2, RNA, NAAT (NEGATIVE) Blood Type A Positive Antibody Screen NEGATIVE 04/03/22 04/03/22 04/03/22 Range/Units 10:46 10:59 11:07 WBC (4.8-10.8) K/ul RBC (3.93-5.22) M/uL Hgb (12.0-16.0) g/dl Hct (34.1-44.9) % MCV (80.0-100.0) fL MCH (25.0-34.0) pg MCHC (32.0-36.0) g/dL RDW Std Deviation (36.4-46.3) fL RDW Coeff of Dom (11.5-14.5) % Plt Count (130-400) K/uL MPV (9.4-12.3) fL Immature Gran % (Auto) % Neut % (Auto) % Lymph % (Auto) % [place] % (Auto) % Eos % (Auto) % Baso % (Auto) % Neut # (Auto) (1.4-6.5) K/uL Lymph # (Auto) (1.2-3.4) K/uL [place] # (Auto) (0.24-0.82) K/uL Eos # (Auto) (0-0.50) K/uL Baso # (Auto) (0-0.2) K/uL Immature Gran # (Auto) (0.00-0.02) K/uL PT (9.0-12.0) Seconds INR (0.9-1.1) APTT (21.0-31.0) Seconds PTT Ratio Sodium 141 (136-145) mmol/L Potassium 4.0 (3.5-5.1) mmol/L Chloride 109 H (98-107) mmol/L Carbon Dioxide 26 (21-32) mmol/L Anion Gap 6 (3-11) BUN 11 (6-23) mg/dl Creatinine 0.60 (0.6-1.2) mg/dl Est Cr Clr Drug Dosing 63.0 ml/min Est GFR ( Amer) 95.7 ml/min Est GFR (Non-Af Amer) 82.5 ml/min BUN/Creatinine Ratio 18.3 (10-20) Glucose 101 H (70-99(Fasting)) mg/dl POC Glucose 94 (70-99) mg/dl Calcium 9.3 (8.5-10.1) mg/dl Magnesium 2.0 (1.7-2.4) mg/dl Total Bilirubin 0.7 (0.2-1.0) mg/dl AST 23 (13-39) U/L ALT 18 (7-52) U/L Alkaline Phosphatase 64 (34-104) U/L Troponin I High Sens 25.3 H (0-14) pg/ml Total Protein 6.7 (6.0-8.3) gm/dl Albumin 4.0 (3.4-5.0) gm/dl Globulin 2.7 (2.5-4.0) gm/dl Albumin/Globulin Ratio 1.5 (0.9-2) Urine Color Yellow Urine Appearance Clear (Clear) Urine pH 7.5 (4.5-7.5) Ur Specific [place] 1.002 (1.000-1.030) Urine Protein Negative (Negative) Urine Glucose (UA) Negative (Negative) Urine Ketones Negative (Negative) Urine Blood Negative (Negative) Urine Nitrite Negative (Negative) Urine Bilirubin Negative (Negative) Urine Urobilinogen Negative (Negative) Ur Leukocyte Esterase Negative (Negative) SARS-CoV-2, RNA, NAAT (NEGATIVE) Blood Type Antibody Screen 04/03/22 Range/Units 11:18 WBC (4.8-10.8) K/ul RBC (3.93-5.22) M/uL Hgb (12.0-16.0) g/dl Hct (34.1-44.9) % MCV (80.0-100.0) fL MCH (25.0-34.0) pg MCHC (32.0-36.0) g/dL RDW Std Deviation (36.4-46.3) fL RDW Coeff of Dom (11.5-14.5) % Plt Count (130-400) K/uL MPV (9.4-12.3) fL Immature Gran % (Auto) % Neut % (Auto) % Lymph % (Auto) % [place] % (Auto) % Eos % (Auto) % Baso % (Auto) % Neut # (Auto) (1.4-6.5) K/uL Lymph # (Auto) (1.2-3.4) K/uL [place] # (Auto) (0.24-0.82) K/uL Eos # (Auto) (0-0.50) K/uL Baso # (Auto) (0-0.2) K/uL Immature Gran # (Auto) (0.00-0.02) K/uL PT (9.0-12.0) Seconds INR (0.9-1.1) APTT (21.0-31.0) Seconds PTT Ratio Sodium (136-145) mmol/L Potassium (3.5-5.1) mmol/L Chloride (98-107) mmol/L Carbon Dioxide (21-32) mmol/L Anion Gap (3-11) BUN (6-23) mg/dl Creatinine (0.6-1.2) mg/dl Est Cr Clr Drug Dosing ml/min Est GFR ( Amer) ml/min Est GFR (Non-Af Amer) ml/min BUN/Creatinine Ratio (10-20) Glucose (70-99(Fasting)) mg/dl POC Glucose (70-99) mg/dl Calcium (8.5-10.1) mg/dl Magnesium (1.7-2.4) mg/dl Total Bilirubin (0.2-1.0) mg/dl AST (13-39) U/L ALT (7-52) U/L Alkaline Phosphatase (34-104) U/L Troponin I High Sens (0-14) pg/ml Total Protein (6.0-8.3) gm/dl Albumin (3.4-5.0) gm/dl Globulin (2.5-4.0) gm/dl Albumin/Globulin Ratio (0.9-2) Urine Color Urine Appearance (Clear) Urine pH (4.5-7.5) Ur Specific [place] (1.000-1.030) Urine Protein (Negative) Urine Glucose (UA) (Negative) Urine Ketones (Negative) Urine Blood (Negative) Urine Nitrite (Negative) Urine Bilirubin (Negative) Urine Urobilinogen (Negative) Ur Leukocyte Esterase (Negative) SARS-CoV-2, RNA, NAAT NEGATIVE (NEGATIVE) Blood Type Antibody Screen Administered Medications Sodium Chloride (Nss 1000ml) 1,000 mls @ 50 mls/hr IV .Q20H MEEK Stop: 05/03/22 10:44 Last Admin: 04/03/22 11:29 Dose: 50 mls/hr Documented By: VIMAL Imaging Data Radiologist's Impression: Chest X-Ray 04/03/22 10:35 SINGLE VIEW CHEST CLINICAL HISTORY: Strokelike symptoms. FINDINGS: An AP, portable, upright chest radiograph is compared to study dated 06/28/2019. The examination is degraded by portable technique and apical lordotic positioning. The heart is top normal for projection noting atherosclerotic calcification of the thoracic aorta. Chronic interstitial thickening is similar to previous. The lungs and pleural spaces are clear noting bibasilar scarring/atelectasis. No pneumothorax is seen. The skeletal structures are osteopenic. The bony thorax is grossly intact. Fusion hardware is partially visualized in the lumbar spine. Surgical clips project over the right lower chest wall. IMPRESSION: No acute cardiopulmonary abnormality. ACT 112: Negative or not required by law. Electronically signed by: Corby Hinton M.D. 04/03/2022 10:[address] 04/03/22 10:35 CT SCAN OF THE BRAIN WITHOUT IV CONTRAST CLINICAL HISTORY: Strokelike symptoms. Change in mental status. COMPARISON STUDY: CT of the brain dated 12/15/2007. TECHNIQUE: Unenhanced axial CT scan of the brain is performed from the vertex to the skull base. A dose lowering technique was utilized adhering to the principles of ALARA. FINDINGS: Brain parenchyma: There is age-related involutional change noting minimal subcortical and periventricular microangiopathic disease. There is no hemorrhage, mass effect, or evidence of acute territorial ischemia by CT criteria. 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 Jiang-white matter differentiation is preserved. No extra-axial fluid collection is seen. Ventricles, sulci, cisterns: Prominent secondary to involutional change. Cavum septum lucid is incidentally noted. Intracranial vasculature: There is atherosclerotic calcification of the cavernous carotid and vertebral arteries. Calvarium: Unremarkable. Sinuses and mastoids: The visualized paranasal sinuses are clear. The mastoid air cells are well pneumatized. Orbits: The bony orbits are grossly intact. There are bilateral ocular lens implants. IMPRESSION: There is no hemorrhage, mass effect, or evidence of acute territorial ischemia by CT criteria. ACT 112: Negative or not required by law. Electronically signed by: Corby Hinton M.D. 04/03/2022 10:56 AM Discharge Plan Visit Data Chief Complaint: Stroke Alert ED Provider: José Luis Gutierrez Discharge Problem: TGA (transient global amnesia), Stroke-like symptoms Discharge Instructions Interventions: ED Discharge Assessment Last Done: 04/03/22 13:49
[2022-04-03] MEDS ORDERED: GADOBUTROL 65ML VIAL IV ONE (22:35)
--- NOTE | 2022-04-03 23:19 | Electrocardiogram Report ---
Test Reason : Blood Pressure : / mmHG Vent. Rate : 080 BPM Atrial Rate : 080 BPM P-R Int : 148 ms QRS Dur : 080 ms QT Int : 396 ms P-R-T Axes : 058 026 020 degrees QTc Int : 456 ms Poor data quality, interpretation may be adversely affected Normal sinus rhythm Possible Left atrial enlargement Borderline ECG When compared with ECG of 28-JUN-2019 23:53, No significant change was found Confirmed by Chema Carl ([id number]) on 04/03/2022 11:19:42 PM Referred By: Confirmed By:Chema Carl
[2022-04-04 03:51] LABS: Hematocrit (blood only) 38.5 % (34.1-44.9); Hemoglobin 12.8 g/dl (12.0-16.0); Mean Corpuscular Hemoglobin 29.7 pg (25.0-34.0); Mean Corpuscular Hgb Conc 33.2 g/dL (32.0-36.0); Mean Corpuscular Volume 89.3 fL (80.0-100.0); Platelet Count 212 K/uL (130-400); RDW Coefficient of Variation 12.7 % (11.5-14.5); RDW Standard Deviation 41.8 fL (36.4-46.3); Red Blood Count 4.31 M/uL (3.93-5.22); White Blood Count 4.07 K/ul (4.8-10.8)
[2022-04-04 04:14] LABS: Albumin Globulin Ratio 1.3 (0.9-2); Albumin Level 3.5 gm/dl (3.4-5.0); Bilirubin,Total 0.6 mg/dl (0.2-1.0); Calcium 8.9 mg/dl (8.5-10.1); Chol HDL Ratio 3.9 (0-5); Est GFR (African American) 94.1 ml/min; Est GFR (Non-African American) 81.2 ml/min; Globulin 2.6 gm/dl (2.5-4.0); Total Protein 6.1 gm/dl (6.0-8.3)
[2022-04-04 04:18] LABS: ALC (manual) 2.73 K/uL (1.2-3.4); ANC (manual) 1.06 K/uL (1.4-6.5); Eosinophils # (manual) 0.08 K/uL (0-0.50); Eosinophils % (manual) 2 %; Lymphocytes # (manual) 2.16 K/uL (1.2-3.4); Lymphocytes % (manual) 53 %; Metamyelocytes # (manual) 0.08 K/uL (0-0); Metamyelocytes % (manual) 2 %; Monocytes # (manual) 0.16 K/uL (0.24-0.82); Monocytes % (manual) 4 %; Neutrophils # (manual) 1.06 K/uL (1.4-6.5); Neutrophils % (manual) 26 %; RBC Morphology Unremarkable; Reactive Lymphocytes # (manual) 0.57 K/uL; Reactive Lymphocytes % (manual) 14 %
--- NOTE | 2022-04-04 07:07 | Magnetic Resonance Report ---
MR ANGIOGRAM OF THE BRAIN CLINICAL HISTORY: Strokelike symptoms. Change in mental status. COMPARISON STUDY: MRI of the brain performed concurrently on 04/03/2022. TECHNIQUE: 3-D [id number] MR angiography of the intracranial circulation is performed. 3-D tumble views are created and assessed. IV contrast was not administered for this examination. FINDINGS: The internal carotid arteries are widely patent bilaterally, as are the anterior and middl e cerebral arteries. The distal cervical internal carotid arteries demonstrate a beaded appearance fernandez ggesting fibromuscular dysplasia. There are large bilateral posterior communicating arteries with fet al origin of the right posterior cerebral artery. The vertebrobasilar system and posterior cerebral a rteries are widely patent. The right vertebral artery is dominant. The left vertebral artery is dimi nutive. There is no aneurysm, high-grade stenosis, or focal vessel cutoff seen throughout the intracr anial circulation. The brain parenchyma is normal as visualized. IMPRESSION: 1. Unremarkable MR angiogram of the brain. 2. The distal cervical internal carotid arteries demonstrate a beaded appearance suggesting fibromusc ular dysplasia. ACT 112: Negative or not required by law. Electronically signed by: Corby Hinton M.D. 04/04/2022 7:05 AM
--- NOTE | 2022-04-04 07:11 | Magnetic Resonance Report ---
MR ANGIOGRAM OF THE NECK COMBO CLINICAL HISTORY: Strokelike symptoms. Change in mental status. COMPARISON STUDY: No priors. TECHNIQUE: Axial 3-D [id number] MR angiography of the neck is performed. Subsequently, following the IV administration of 6.5 cc of Gadavist. Coronal MR angiogram of the neck was performed to corrob orate the findings. 3-D reformats are created and assessed. All measurements were calculated based on NASCET criteria. FINDINGS: Visualized portions of the thoracic aorta are normal in caliber. The aortic arch demonstrat es standard 3-vessel anatomy. The subclavian arteries are widely patent bilaterally. The right common carotid artery is widely patent, as are the right internal and external carotid arteries. The left c ommon carotid artery is widely patent, as are the left internal and external carotid arteries. The mi d to distal internal carotid arteries demonstrate a beaded appearance suggesting fibromuscular dyspla domo. The vertebral arteries are widely patent. The right vertebral artery is dominant. The left verte bral artery is diminutive. The visualized intracranial vessels at the skull base appear patent. IMPRESSION: 1. The neck vessels are widely patent bilaterally. 2. The internal carotid arteries demonstrate a beaded appearance suggesting fibromuscular dysplasia. ACT 112: Negative or not required by law. Electronically signed by: Cobry Hinton M.D. 04/04/2022 7:08 AM
[2022-04-04 07:16] LABS: Estimated Average Glucose 114 mg/dl; Hemoglobin A1C 5.6 % (4.5-5.6)
[2022-04-04] MEDS ORDERED: ENOXAPARIN INJ 40 MG/0.4 ML SYR SQ SCH (09:00)
[2022-04-04] MEDS ORDERED: ASPIRIN 81 MG ECTAB PO SCH (09:00)
--- NOTE | 2022-04-04 11:12 | Magnetic Resonance Report ---
MR brain wo con CLINICAL HISTORY: TIA/CVA alert, ddx includes TGA TECHNIQUE: Multiplanar and multisequence MR images of the brain were obtained without intravenous con trast. Comparison: Comparison is made to MRA head 04/03/[address] head 04/03/2022 as well as MRI brain 013 FINDINGS: No abnormal restricted diffusion is identified. Foci of T2 and FLAIR hyperintensity are noted in the paraventricular areas consistent with chronic small vessel ischemic disease. Ex vacuo ventriculomegal y and sulcal enlargement is noted compatible with diffuse encephalomalacia. No mass is seen. Incident al note is made of a linear defect in the right cerebellum, unchanged from recent priors but new from 2013. Pineal gland calcifications are incidentally noted. There is no evidence of acute intraparench ymal hemorrhage. No extra axial fluid collections are seen. The corpus callosum, pituitary gland, and cerebellar tonsils appear grossly unremarkable. Flow voids of the major intracranial arterial vessels are identified. The imaged portions of the para nasal sinuses, mastoid air cells, and orbits are unremarkable. IMPRESSION: Chronic volume loss and age related white matter changes without evidence of acute abnormality. ACT 112: Negative or not required by law. Electronically signed by: Jatin Valadez M.D. 04/04/2022 11:10 AM
--- NOTE | 2022-04-04 11:30 | Neurology Consultation ---
Date of Consultation April 04, 2022 Assessment & Plan (1) TGA (transient global amnesia): (2) Stroke-like symptoms: (3) Hyperlipidemia LDL goal <100: Plan ASSESSMENT and PLAN/RECOMMENDATIONS: 1. 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 History is suggestive of transient global amnesia. Transient ischemic attack as well as complex partial seizures are considered in differential, even though they are less likely. Plan: EEG to evaluate for epileptogenic activity. This study will be completed today. We will start patient on Lipitor 20 mg at bedtime. Goal LDL level is lower than 100. We will keep the patient on aspirin 81 mg daily. There is no indication to switch to another antiplatelet agent. If EEG comes unremarkable, then the patient can be discharged home without restriction. Good hydration is explained and recommended patient. If she experience any similar or different confusional episodes, stereotyped movements, staring episodes, tonic-clonic activity, then she will stop driving, and will contact with outpatient neurology. Follow-up with neurology clinic in few weeks. I have already contacted with Dr. Posadas's office for scheduling. 2. Fibromuscular dysplasia of carotid arteries Impression: MR angiography is showed beading goal neck vessels, suggestive of fibromuscular dysplasia without hemodynamically significant stenosis. Plan: We will keep the patient on aspirin and Lipitor. Thank you for the consultation. History of Present Illness Reason for Consultation: Amnestic episode Requesting Physician: Saul jimenes MD Attending Physician: Roman Fernandez DO History of Present Illness The patient is 87-year-old very pleasant female, who was brought to emergency department by EMS yesterday, after the patient had an amnestic episode. According to patient and her , Ernestine did not make her breakfast but after drinking some coffee, she was outside working in her yard, watered her lawn, and treated weeds. She was somewhat hot and sweaty. She has not remembered feeling bad or funny. Indeed, she had only very limited and patchy memory of working outside yesterday. When she came inside, she did not remember that she was outside and doing yard work according to . There was no other cognitive dysfunction, or neurological deficit as much as her noticed. The patient went inside, and was dressing, but did not remember why. There was no tonic-clonic activity, funny taste or smell, speech difficulty, weakness, dizziness, vertigo, double vision, other cranial nerve symptoms, stereotyped movements, however, she was having some memory registration difficulty even after coming inside the house until ambulance and EMS arrived. In emergency department, the patient was back to her baseline without any cognitive dysfunction. She was still having memory gaps regarding events in the morning. Head CT without contrast was unremarkable. The case was discussed with telestroke specialist, and they did not consider the patient a candidate for thrombolytic treatment. Since admission, the patient has been symptom-free. Brain MRI was negative for acute events. There was no other structural pathology but mild diffuse volume loss. CT angiography of head and neck did not show hemodynamically significant stenosis but some beading of carotid arteries, which was suggestive of fibromuscular dysplasia. Apparently, the patient had another amnestic episode several years ago, which was considered to be a transient global amnesia, which lasted for 5 hours. The patient denies any unusual events recently. I have reviewed the patient's chart including imaging studies and visualized them personally. I have discussed the case with the patient, hospitalist and radiology physicians. Allergies Allergy/AdvReac Type Severity Reaction Status Date / Time iodine Allergy Intermediate TINGLING Verified 06/14/21 09:00 IN LIMBS shellfish derived AdvReac Severe VOMITING Verified 06/14/21 09:00 dextromethorphan AdvReac Intermediate [employer] Verified 06/14/21 09:00 Yellow Jackets Allergy Severe anaphylaxis Uncoded 06/14/21 09:00 Home Medications Medication Instructions Recorded Confirmed Type ascorbate calcium (vitamin C) 500 500 mg PO DAILY 06/05/19 06/14/21 History mg tablet aspirin 81 mg tablet,delayed 81 mg PO DAILY 06/05/19 06/14/21 History release calcium carbonate 500 mg calcium 500 mg PO DAILY 06/05/19 06/14/21 History (1,250 mg) tablet (Calcium 500) cholecalciferol (vitamin D3) 25 1,000 units PO DAILY 06/05/19 06/14/21 History mcg (1,000 unit) capsule flaxseed oil 1,000 mg capsule 1,000 mg PO DAILY 06/05/19 06/14/21 History multivitamin (Daily Multi-Vitamin 1 tab PO DAILY 06/05/19 06/14/21 History tablet) omega-3 fatty acids 1,000 mg 1,000 mg PO DAILY 06/05/19 06/14/21 History capsule (Fish Oil Concentrate) epinephrine 0.3 mg/0.3 mL 0.3 mg (0.3 mL) IM DIRECTED PRN 12/07/19 06/14/21 R x injection, auto-injector (EpiPen Allergic Reaction #2 ea 2-Navdeep) Patient History Medical History Chronic back pain Gastroesophageal reflux disease H/O bone density study 11/04/2018-osteopenia Hyperlipidemia LDL goal <100 Hypothyroidism (acquired) Lumbar post-laminectomy syndrome Neoplasm of left breast, 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 Mother , Age 76 Breast cancer Grandfather No problems noted. 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 [employer] How many Children do You have: 3 Other Information That Helps Us Care for You: No Feels Safe at Home: Yes Safety Concerns: Feels Safe At This Time Childhood Exposure to Second-Hand Smoke: No caffeine: Yes (coffee) Dental Care, Regularly: Yes Physical Activity Frequency: 1-2 Times per Week Physical Activity Frequency Comment: walk Seatbelt Use: always Sunscreen Use: Yes Do you think of yourself as: straight/heterosexual Assistive Devices: None Review of Systems Review of Systems: All systems reviewed & are unremarkable except as noted in HPI & below Physical Exam Physical Exam: General Examination: Constitutional: Well developed person in no acute distress. HENT: Normal exam with inspection. CV: Hearth rhtyhm is regular. Neck: Supple, no carotid bruits. Lungs: Non-labored and comfortable breathing. Abdomen: Soft, non-tender, non-distended. Skin: No rash or ecchymosis. Extremities: No edema or cyanosis NEUROLOGICAL EXAMINATION: Mental Status: Alert and oriented to place, person and time. Cranial Nerves: II-XII are intact. No nystagmus. Funduscopy: Normal looking optic discs. Motor: 5/5 in all extremities without asymmetry. Tone: Normal without spasticity or rigidity. DTRs: 1+ all. No Babinski Sensory: Intact to all sensory modalities other then slightly decreased vibratory sensation in feet. Coordination: No dysmetria with FTN testing. Speech: Fluent. Comprehension is intact. Gait: Normal. No ataxia or abnormal walking pattern. Musculoskeletal: Normal muscle bulk, no atrophy. Results & Data ([facility]) Vital Signs (Past 12 Hours) Vital Signs Temp Pulse Resp BP Pulse Ox O2 Del Method 04/04/22 08:00 36.7 C 67 18 128/63 94 04/04/22 03:43 36.5 C 58 L 18 108/58 L 95 Room Air Laboratory Results Laboratory Results - last 24 hr 04/03/22 04/03/22 04/03/22 10:46 10:46 16:28 WBC RBC Hgb Hct MCV MCH MCHC RDW Std Deviation RDW Coeff of Dom Plt Count MPV Neutrophils % (Manual) Lymphocytes % (Manual) Reactive Lymphs % (Man) Monocytes % (Manual) Eosinophils % (Manual) Metamyelocytes % (Man) Neutrophils # (Manual) Total Absolute Neuts Lymphocytes # (Manual) Reactive Lymphs # Total Abs Lymphocytes Monocytes # (Manual) Eosinophils # (Manual) Metamyelocytes # (Man) RBC Morphology Sodium Potassium Chloride Carbon Dioxide Anion Gap BUN Creatinine Est Cr Clr Drug Dosing Est GFR ( Amer) Est GFR (Non-Af Amer) BUN/Creatinine Ratio Glucose Estimat Average Glucose Hemoglobin A1c Calcium Total Bilirubin AST ALT Alkaline Phosphatase Troponin I High Sens 51.7 H* D Total Protein Albumin Globulin Albumin/Globulin Ratio Triglycerides Cholesterol LDL Cholesterol, Calc VLDL Cholesterol, Calc HDL Cholesterol Cholesterol/HDL Ratio Vitamin B12 648 TSH 0.998 04/03/22 04/04/22 04/04/22 23:30 03:36 03:36 WBC 4.07 L RBC 4.31 Hgb 12.8 Hct 38.5 MCV 89.3 MCH 29.7 MCHC 33.2 RDW Std Deviation 41.8 RDW Coeff of Dom 12.7 Plt Count 212 MPV 10.0 Neutrophils % (Manual) 26 Lymphocytes % (Manual) 53 Reactive Lymphs % (Man) 14 Monocytes % (Manual) 4 Eosinophils % (Manual) 2 Metamyelocytes % (Man) 2 Neutrophils # (Manual) 1.06 L Total Absolute Neuts 1.06 L Lymphocytes # (Manual) 2.16 Reactive Lymphs # 0.57 Total Abs Lymphocytes 2.73 Monocytes # (Manual) 0.16 L Eosinophils # (Manual) 0.08 Metamyelocytes # (Man) 0.08 H RBC Morphology Unremarkable Sodium Potassium Chloride Carbon Dioxide Anion Gap BUN Creatinine Est Cr Clr Drug Dosing Est GFR ( Amer) Est GFR (Non-Af Amer) BUN/Creatinine Ratio Glucose Estimat Average Glucose Hemoglobin A1c Calcium Total Bilirubin AST ALT Alkaline Phosphatase Troponin I High Sens 28.0 H D 19.9 H D Total Protein Albumin Globulin Albumin/Globulin Ratio Triglycerides Cholesterol LDL Cholesterol, Calc VLDL Cholesterol, Calc HDL Cholesterol Cholesterol/HDL Ratio Vitamin B12 TSH 04/04/22 04/04/22 04/04/22 03:36 03:36 08:38 WBC RBC Hgb Hct MCV MCH MCHC RDW Std Deviation RDW Coeff of Dom Plt Count MPV Neutrophils % (Manual) Lymphocytes % (Manual) Reactive Lymphs % (Man) Monocytes % (Manual) Eosinophils % (Manual) Metamyelocytes % (Man) Neutrophils # (Manual) Total Absolute Neuts Lymphocytes # (Manual) Reactive Lymphs # Total Abs Lymphocytes Monocytes # (Manual) Eosinophils # (Manual) Metamyelocytes # (Man) RBC Morphology Sodium 139 Potassium 4.0 Chloride 110 H Carbon Dioxide 24 Anion Gap 5 BUN 12 Creatinine 0.63 Est Cr Clr Drug Dosing 60.0 Est GFR ( Amer) 94.1 Est GFR (Non-Af Amer) 81.2 BUN/Creatinine Ratio 19.0 Glucose 92 Estimat Average Glucose 114 Hemoglobin A1c 5.6 Calcium 8.9 Total Bilirubin 0.6 AST 20 ALT 15 Alkaline Phosphatase 61 Troponin I High Sens 12.4 D Total Protein 6.1 Albumin 3.5 Globulin 2.6 Albumin/Globulin Ratio 1.3 Triglycerides 75 Cholesterol 220 H LDL Cholesterol, Calc 149 VLDL Cholesterol, Calc 15 HDL Cholesterol 56 Cholesterol/HDL Ratio 3.9 Vitamin B12 TSH Diagnostic Findings Chest X-Ray 04/03/22 10:35 SINGLE VIEW CHEST CLINICAL HISTORY: Strokelike symptoms. FINDINGS: An AP, portable, upright chest radiograph is compared to study dated 06/28/2019. The examination is degraded by portable technique and apical lordotic positioning. The heart is top normal for projection noting atheroscl erotic calcification of the thoracic aorta. Chronic interstitial thickening is similar to previous. The lungs and pleural spaces are clear noting bibasilar scarring/atelectasis. No pneumothorax is seen. The skeletal structures are osteopenic. The bony thorax is grossly intact. Fusion hardware is partially visualized in the lumbar spine. Surgical clips project over the right lower chest wall. IMPRESSION: No acute cardiopulmonary abnormality. ACT 112: Negative or not required by law. Electronically signed by: Corby Hinton M.D. 04/03/2022 10:[address] 04/03/22 10:35 CT SCAN OF THE BRAIN WITHOUT IV CONTRAST CLINICAL HISTORY: Strokelike symptoms. Change in mental status. COMPARISON STUDY: CT of the brain dated 12/15/2007. TECHNIQUE: Unenhanced axial CT scan of the brain is performed from the vertex to the skull base. A dose lowering technique was utilized adhering to the principles of ALARA. FINDINGS: Brain parenchyma: There is age-related involutional change noting minimal subcortical and periventricular microangiopathic disease. There is no hemorrhage, mass effect, or evidence of acute territorial ischemia by CT criteria. 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 Jiang-white matter differentiation is preserved. No extra-axial fluid collection is seen. Ventricles, sulci, cisterns: Prominent secondary to involutional change. Cavum septum lucid is incidentally noted. Intracranial vasculature: There is atherosclerotic calcification of the cavernous carotid and vertebral arteries. Calvarium: Unremarkable. Sinuses and mastoids: The visualized paranasal sinuses are clear. The mastoid air cells are well pneumatized. Orbits: The bony orbits are grossly intact. There are bilateral ocular lens implants. IMPRESSION: There is no hemorrhage, mass effect, or evidence of acute territorial ischemia by CT criteria. ACT 112: Negative or not required by law. Electronically signed by: Corby Hinton M.D. 04/03/2022 10:56 AM Brain MRI 04/03/22 14:30 MR brain wo con CLINICAL HISTORY: TIA/CVA alert, ddx includes TGA TECHNIQUE: Multiplanar and multisequence MR images of the brain were obtained without intravenous contrast. Comparison: Comparison is made to MRA head 04/03/[address] head 04/03/2022 as well as MRI brain 03/09/2013 FINDINGS: No abnormal restricted diffusion is identified. Foci of T2 and FLAIR hyperintensity are noted in the paraventricular areas consistent with chronic small vessel ischemic disease. Ex vacuo ventriculomegaly and sulcal enlargement is noted compatible with diffuse encephalomalacia. No mass is seen. Incidental note is made of a linear defect in the right cerebellum, unchanged from recent priors but new from 2012. Pineal gland calcifications are incidentally noted. There is no evidence of acute intraparenchymal hemorrhage. No extra axial fluid collections are seen. The corpus callosum, pituitary gland, and cerebellar tonsils appear grossly unremarkable. Flow voids of the major intracranial arterial vessels are identified. The imaged portions of the paranasal sinuses, mastoid air cells, and orbits are unremarkable. IMPRESSION: Chronic volume loss and age related white matter changes without evidence of acute abnormality. ACT 112: Negative or not required by law. Electronically signed by: Jatin Valadez M.D. 04/04/2022 11:10 AM Head MRA 04/03/22 14:30 MR ANGIOGRAM OF THE BRAIN CLINICAL HISTORY: Strokelike symptoms. Change in mental status. COMPARISON STUDY: MRI of the brain performed concurrently on 04/03/2022. TECHNIQUE: 3-D [id number] MR angiography of the intracranial circulation is performed. 3-D tumble views are created and assessed. IV contrast was not administered for this examination. FINDINGS: The internal carotid arteries are widely patent bilaterally, as are the anterior and middle cerebral arteries. The distal cervical internal carotid arteries demonstrate a beaded appearance suggesting fibromuscular dysplasia. There are large bilateral posterior communicating arteries with origin of the right posterior cerebral artery. The vertebrobasilar system and posterior cerebral arteries are widely patent. The right vertebral artery is dominant. The left vertebral artery is diminutive. There is no aneurysm, high-grade stenosis, or focal vessel cutoff seen throughout the intracranial circulation. The brain parenchyma is normal as visualized. IMPRESSION: 1. Unremarkable MR angiogram of the brain. 2. The distal cervical internal carotid arteries demonstrate a beaded appearance suggesting fibromuscular dysplasia. ACT 112: Negative or not required by law. Electronically signed by: Corby Hinton M.D. 04/04/2022 7:05 AM Neck MRA 04/03/22 14:30 MR ANGIOGRAM OF THE NECK COMBO CLINICAL HISTORY: Strokelike symptoms. Change in mental status. COMPARISON STUDY: No priors. TECHNIQUE: Axial 3-D [id number] MR angiography of the neck is performed. Subsequently, following the IV administration of 6.5 cc of Gadavist. Coronal MR angiogram of the neck was performed to corroborate the findings. 3-D reformats are created and assessed. All measurements were calculated based on NASCET criteria. FINDINGS: Visualized portions of the thoracic aorta are normal in caliber. The aortic arch demonstrates standard 3-vessel anatomy. The subclavian arteries are widely patent bilaterally. The right common carotid artery is widely patent, as are the right internal and external carotid arteries. The left common carotid artery is widely patent, as are the left internal and external carotid arteries. The mid to distal internal carotid arteries demonstrate a beaded appearance suggesting fibromuscular dysplasia. The vertebral arteries are widely patent. The right vertebral artery is dominant. The left vertebral artery is diminutive. The visualized intracranial vessels at the skull base appear patent. IMPRESSION: 1. The neck vessels are widely patent bilaterally. 2. The internal carotid arteries demonstrate a beaded appearance suggesting fibromuscular dysplasia. ACT 112: Negative or not required by law. Electronically signed by: Corby Hinton M.D. 04/04/2022 7:08 AM
--- NOTE | 2022-04-04 14:53 | Electroencephalogram ---
EEG Procedure Note Date of Service April 04, 2022 Start / End Times Start Time: 12:54 pm End Time: 01:14 pm Referring Physician Demian Arzate MD History TGA Home Medication List Medication Instructions Recorded Confirmed Type ascorbate calcium (vitamin C) 500 500 mg PO DAILY 06/05/19 06/14/21 History mg tablet aspirin 81 mg tablet,delayed 81 mg PO DAILY 06/05/19 06/14/21 History release calcium carbonate 500 mg calcium 500 mg PO DAILY 06/05/19 06/14/21 History (1,250 mg) tablet (Calcium 500) cholecalciferol (vitamin D3) 25 1,000 units PO DAILY 06/05/19 06/14/21 History mcg (1,000 unit) capsule flaxseed oil 1,000 mg capsule 1,000 mg PO DAILY 06/05/19 06/14/21 History multivitamin (Daily Multi-Vitamin 1 tab PO DAILY 06/05/19 06/14/21 History tablet) omega-3 fatty acids 1,000 mg 1,000 mg PO DAILY 06/05/19 06/14/21 History capsule (Fish Oil Concentrate) epinephrine 0.3 mg/0.3 mL 0.3 mg (0.3 mL) IM DIRECTED PRN 12/07/19 06/14/21 Rx injection, auto-injector (EpiPen Allergic Reaction #2 ea 2-Navdeep) Inpatient Medication List Aspirin (Aspirin 81 Mg Ectab) 81 mg PO DAILY MEEK Stop: 05/04/22 08:59 Last Admin: 04/04/22 08:42 Dose: 81 mg Documented By: CA Enoxaparin Sodium (Enoxaparin Inj 40 Mg/0.4 Ml Syr) 40 mg SQ Q24H MEEK Stop: 05/04/22 08:59 Last Admin: 04/04/22 08:42 Dose: 40 mg Documented By: CA Discontinued Medications Gadobutrol (Gadobutrol 65ml Vial) 6.5 ml IV ONCE ONE Stop: 04/03/22 22:36 Last Admin: 04/03/22 22:35 Dose: 6.5 ml Documented By: AF Sodium Chloride (Nss 1000ml) 1,000 mls @ 50 mls/hr IV .Q20H MEEK Stop: 05/03/22 10:44 Last Infusion: 04/03/22 21:57 Dose: 0 mls/hr Documented By: Admin: 04/03/22 11:29 Dose: 50 mls/hr Documented By: VIMAL Description This is a 21 electrode EEG with a single channel dedicated to limited EKG. The electrodes were placed in accordance with the International 10-20 system. Interpretation Background: There is a well organized background activity, composed of theta, beta, and alpha waveforms. There is no focal or generalized slowing. There is a 9 Hz posterior activity, which attenuates with eye opening bilaterally. Sleep: Vertex sharp waves and sleep spindles are recorded bilaterally and symmetrically, as an indicator of stage II sleep. Stimulation maneuvers: Photic stimulations induced posterior driving responses bilaterally and symmetrically. Hyperventilation is not attempted. Abnormal activity: None. Impression: This is a normal EEG, recorded in wakefulness and sleep. There is no electrographic seizure or epileptogenic discharge. Clinical Correlation Normal interictal EEG does not rule out seizures. If clinically indicated, a follow-up study with prolonged recording and sleep deprivation might offer further information.
[2022-04-04] MEDS ORDERED: STROKE PATIENT DISCHARGE STA (15:53)
--- NOTE | 2022-04-04 21:43 | Discharge Summary ---
Date of Service April 04, 2022 Admission HPI Per Admitting Provider Per Pt: At bedside patient seen in the company of her . 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 She did not have any awareness that anything was wrong, but asked her who had done the gardening/watering and did not remember and her was extremely concerned. Otherwise her noted she did not seem confused. She went inside and laid down but felt okay, but due to the complete memory loss and concern for TIA it was recommended she be seen in the hospital for evaluation, came in as a stroke alert. At bedside she reports that she is otherwise in her normal state of health. She has not had any chest pain, chest pressure, recent illnesses, lightheadedness, dizziness, focal weakness, or generalized weakness. She does endorse a longstanding history of some diminished sensation of soft touch in her lower legs bilaterally, this is incomplete and symmetrical and has not changed. No other neurologic deficits. She has an episode of TGA in 2008 with about 5 hours of permanent retrograde memory loss. She currently has had some return of memory of watering a little bit and weeding a little bit, but most remains absent. Medical History: Reviewed Medications: Reviewed Surgical History: Reviewed Allergies: Reviewed Social History: No tobacco, rare social alcohol use with none recently. No recent supplement or [id number] medication change Code Status: NR/DNI. Discussed at bedside. Patient's surrogate decision maker would be her Principal Diagnosis TGA Discharge Exam In general she is awake and alert pleasant no distress. HEENT normocephalic atraumatic mucous membranes moist. Breathing unlabored no accessory muscle use good effort. Skin shows no rashes no pallor or icterus. Neuro without focal deficits. Good recent remote recall. 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 Has fibromuscular dysplasia of the carotids but no significant stenosisoutpatient follow-up. MRI shows microvascular and chronic type changes but no acute findings. Overall work-up for stroke/TIA appears to be low yield. Her lipids are somewhat highbut given that it is unlikely this was cerebrovascular in mechanism, and given her agewhile a statin would be indicated based on vascular disease, given the situation is much more nuanced and nebulousI will defer to her PCPs judgment on the risk/benefit of a statin. EEG was reassuring. Patient stable for home. -Mechanistically I actually suspect some degree of poor flow due to dehydration and/or vasodilation given that she was working on the heat. (2) Gastroesophageal reflux disease: (3) Hyperlipidemia LDL goal <100: (4) Hypothyroidism (acquired): (5) Elevated troponin: (6) Neuropathy: Total Time Total Time Spent Total Time Spent (In Minutes): <30 Discharge Plan Discharge Items Patient Disposition: Home - Self-Care Reason For Visit: TGA/TIA, CARDIAC EVAL Discharge Diagnosis: Transient global amnesia Activity: Resume your previous activity Non-emergency contact: Primary Care Provider and Neurologist Call non-emergency contact if: you have any medication questions Follow-up/Referrals: Saul Roy MD [Primary Care Provider] - (Office will call you for a follow up appt.) Diet: Regular Addtl Attending Provider Instructions: Transient global amnesia -This is really just the medical term for saying that you had a lack of memory/memory "blind spot" for a short period of time -As we discussed, while lack of blood flow to the brain/stroke/TIA type disease processes, and seizure-like disease processes, are what we exclude in a situation like transient global amnesia, truthfully those are the cause a very small minority of the time. More often, the cause is not well-defined, or different things that can just temporarily have a little bit of reduction of blood flow to your whole brain. -Nothing looked acutely stroke/strokelike on your work-up. The MRI did show chronic small blood vessel appearing changesa very, very common finding in an 87-year-old. The EEG (brainwave test) did not show any signs of seizure -More than likely, it was likely an interplay of heat/humidity/dehydration causing a little bit of poor blood flow to your brain. As we discussed, that explanation certainly lacks a good "why yesterday and not another day" element, but also as we discussed, we truly scientific explanation for a transient global amnesia episode is "if its not a stroke or seizure we do not really know" and I would certainly rather give you a plausible explanation that makes sense at least in part, rather than no explanation at all. -Neurology recommended starting you on Lipitor, and if we look at this amnesia event as possibly a TIA (as possibly a warning shot for a stroke), then it would make sense. However, given that most transient global amnesia episodes are not, and given that medicines like Lipitor are much more nebulous as far as risk/benefit when we get into our late 80s, I would much prefer that you discuss this further with Dr. Roy, who knows you far better than we do. -I would definitely recommend staying well-hydratedprobably try to aim for 60 ounces of fluid a day. If you are working out in the heat, probably add in an additional 4 to 6 ounces per hour you are outside. Pending Studies at Discharge: No Stand-Alone Forms: [facility], Smoking Cessation Medications and DC Order Prescriptions: Continued epinephrine [EpiPen 2-Navdeep] 0.3 mg/0.3 mL auto-injector 0.3 mg IM DIRECTED PRN (Reason: Allergic Reaction) Qty: 2 3RF aspirin 81 mg tablet,delayed release (DR/EC) 81 mg PO DAILY calcium carbonate [Calcium 500] 500 mg calcium (1,250 mg) tablet 500 mg PO DAILY omega-3 fatty acids [Fish Oil Concentrate] 1,000 mg capsule 1,000 mg PO DAILY flaxseed oil 1,000 mg capsule 1,000 mg PO DAILY multivitamin [Daily Multi-Vitamin] tablet 1 tab PO DAILY ascorbate calcium (vitamin C) 500 mg tablet 500 mg PO DAILY cholecalciferol (vitamin D3) 1,000 unit capsule 1,000 units PO DAILY Discharge Orders: Discharge Order (Routine); Ordered 04/04/22 Ordered By: Roman Fernandez Admission Data Admit Date/Time: 04/03/22 12:52 Attending Provider: Roman Fernandez Admit Provider: Saul Reyna Primary Care Provider: Saul Roy Other Providers: Saul Reyna ; Demian Arzate Other Interventions: Discharge Summary Assessment (RN) Last Done: 04/04/22 17:16 Coding Level of Care Code 71555 OBS Care - Discharge Diagnoses TGA (transient global amnesia) G45.4 Gastroesophageal reflux disease K21.9 Hyperlipidemia LDL goal <100 E78.5 Hypothyroidism (acquired) E03.9 Elevated troponin R77.8 Neuropathy G62.9
--- NOTE | 2022-04-25 07:08 | Coding Query ---
A supporting diagnosis is required for the test/procedure performed on this patient in order for us to be reimbursed by the patient's insurance. Please provide a supporting diagnosis for the following test/procedure listed below next to the test name along with your signature. *If there is no additional diagnosis for this patient that would support the following test/procedure please document that below next to the test/procedure. Test(s)/Procedure(s) that require a supporting diagnosis: * [id number] MR ANGIO HEAD DIAGNOSIS: * 61591 MR ANGIO NECK DIAGNOSIS: Retrograde [id number]. Transient global amnesia. G45. 4 Initially suspected/ruling out TIA/CVA DATE OF SERVICE: 04/03/22 Provider Signature: Saul Reyna IV Date: ___05/01/22____ Thank you Vick [facility] Information Management Once completed, please kindly fax back to [phone] For questions please call [phone] [facility] [place]
== END 2022-04-04 18:27 | disposition home or self-care (01) ==
LOC: ED 10:40 → 4W 10:40 → SUATTDRO 12:52 → 4W 13:49
DX: R77.8 Other specified abnormalities of plasma proteins; R41.2 Retrograde amnesia; E03.9 Hypothyroidism, unspecified; G45.4 Transient global amnesia; Z88.8 Allergy status to other drugs, medicaments and biological substances; G62.9 Polyneuropathy, unspecified; K21.9 Gastro-esophageal reflux disease without esophagitis; Z91.013 Allergy to seafood; Z79.82 Long term (current) use of aspirin; E78.5 Hyperlipidemia, unspecified; Z79.899 Other long term (current) drug therapy